=== PATIENT | male | born 1950 | race Hispanic/Latino ===

== ENCOUNTER 2017-09-22 10:29 | Emergency (ER) | payer OTHER ==
[2017-09-22] MEDS ORDERED: Sodium Chloride 0.9% 1,000 ML IV ONE (11:11)
[2017-09-22] MEDS ORDERED: Albuterol-Ipratrop 3 mg / 0.5 (3 ml) UD INH STA (11:12)
--- NOTE | 2017-09-22 11:27 | C.PDOC ---
History Of Present Illness 67 y/o male presents to ED for evaluation of flu like symptoms for the past week. Pt complains of congestion, cough with yellow phlegm. Pt states he has history of vertigo, and states coughing makes him feel dizzy. Notes taking vertigo medications with mild relief, but states that cough is persistent which makes him feel worse. Denies fever, chills, or headache. Time Seen by Provider: 09/22/17 10:48 Chief Complaint (Nursing): Flu-like Symptoms History Per: Patient History/Exam Limitations: no limitations Onset/Duration Of Symptoms: Days Current Symptoms Are (Timing): Still Present Location Of Pain: None Sick Contacts (Context): None Associated Symptoms: Cough, Sputum, Nasal Congestion. denies: Sore Throat, Neck Pain, Sinus Drainage, Myalgias Ear Symptoms: Bilateral: None Recent travel outside of the [place]: No Additional History Per: Patient Past Medical History Reviewed: Historical Data, Nursing Documentation, Vital Signs Vital Signs: Last Vital Signs Temp 98.2 F 09/22/17 13:00 Pulse 90 09/22/17 13:00 Resp 16 09/22/17 13:00 BP 134/81 09/22/17 13:00 Pulse Ox 99 09/22/17 13:22 - Medical History PMH: Back Problems, Chronic Pain Family History: States: Unknown Family Hx - Social History Hx Tobacco Use: No Hx Alcohol Use: No Hx Substance Use: No - Immunization History Hx Tetanus Toxoid Vaccination: No Hx Influenza Vaccination: No Hx Pneumococcal Vaccination: No Review Of Systems Except As Marked, All Systems Reviewed And Found Negative. Constitutional: Negative for: Fever, Chills ENT: Positive for: Nose Congestion Cardiovascular: Negative for: Chest Pain, Palpitations Respiratory: Positive for: Cough, Sputum. Negative for: Shortness of Breath, Hemoptysis Gastrointestinal: Negative for: Nausea, Vomiting, Abdominal Pain, Diarrhea Neurological: Positive for: Dizziness. Negative for: Weakness, Numbness, Headache Physical Exam - Physical Exam Appears: Non-toxic, No Acute Distress Skin: Normal Color, Warm, Dry Head: Atraumatic, Normacephalic Eye(s): bilateral: Normal Inspection Oral Mucosa: Moist Neck: Supple Chest: Symmetrical Cardiovascular: Rhythm Regular, No Murmur Respiratory: Other (coarse breath sounds) Gastrointestinal/Abdominal: Soft, No Tenderness Extremity: Normal ROM, No Pedal Edema Neurological/Psych: Oriented x3, Normal Speech ED Course And Treatment - Laboratory Results Result Diagrams: 09/22/17 12:02 09/22/17 12:02 ECG: Interpreted By Me, Viewed By Me ECG Rhythm: Sinus Rhythm ECG Interpretation: No Acute Changes Interpretation Of ECG: Normal axis, normal intervals. No acute ST/T wave changes. Rate From EC (bpm) O2 Sat by Pulse Oximetry: 99 (RA) Pulse Ox Interpretation: Normal Medical Decision Making Medical Decision Making: Impression: 1. Bronchitis 2. Vertigo Blood work, head CT, EKG, CXR, Influenza AB ordered and reviewed. Pt was given IV fluids and Albuterol treatment. On re-eval, pt feels better, will be discharged home, instructed to follow up with PMD in 1-2 days. Disposition Discussed With : Rachael Galindo - Disposition Referrals: Ursula Galindo MD [Medical Doctor] - Disposition: HOME/ ROUTINE Disposition Time: 13:20 Condition: IMPROVED Additional Instructions: follow up with your doctor in 2 days call to make an appointment take medications as prescribed return to hospital if symptoms worsens or progress Prescriptions: Albuterol HFA [Ventolin HFA 90 mcg/actuation (8 g)] 2 puff IH [id number] #1 puff Azithromycin [Zithromax] 250 mg PO DAILY #4 tab Hydrocodone/Chlorpheniramine [Tussionex] 5 ml PO QPM #80 ml predniSONE [predniSONE Tab] 50 mg PO DAILY #4 tab Forms: [facility] (Armenian), General Discharge Instructions - Clinical Impression Clinical Impression: Dizziness, Bronchitis - Scribe Statement The provider has reviewed the documentation as recorded by the Gertchen Bianchi All medical record entries made by the Nagaibluis fernando were at my direction and personally dictated by me. I have reviewed the chart and agree that the record accurately reflects my personal performance of the history, physical exam, medical decision making, and the department course for this patient. I have also personally directed, reviewed, and agree with the discharge instructions and disposition.
[2017-09-22 12:06] LABS: BASO # 0.1 K/uL (0.0-0.2); BASO % 0.6 % (0.0-2.0); EOS # 0.2 K/uL (0.0-0.7); EOS % 2.2 % (0.0-4.0); HEMATOCRIT 46.4 % (35.0-51.0); LYMPH # 1.4 K/uL (1.0-4.3); LYMPH % 15.8 % (20.0-40.0); MEAN CELL VOLUME 85.3 fL (80.0-94.0); MEAN CORPUSCULAR HEMOGLOBIN 28.8 pg (27.0-31.0); MEAN CORPUSCULAR HGB CONC 33.8 g/dL (33.0-37.0); MEAN PLATELET VOLUME 9.4 fL (7.2-11.7); MONO # 0.7 K/uL (0.0-0.8); MONO % 7.5 % (0.0-10.0); NRBC % 0.7 % (0.0-2.0); RED CELL DISTRIBUTION WIDTH 13.5 % (11.5-14.5); WHITE BLOOD COUNT 8.8 K/uL (4.8-10.8)
--- NOTE | 2017-09-22 12:09 | CT ---
PROCEDURE: CT HEAD WITHOUT CONTRAST. HISTORY: dizziness COMPARISON: Head CT without contrast 12/02/2014. TECHNIQUE: Axial computed tomography images were obtained through the head/brain without intravenous contrast. Radiation dose: Total exam DLP = 834.90 mGy-cm. This CT exam was performed using one or more of the following dose reduction techniques: Automated exposure control, adjustment of the mA and/or kV according to patient size, and/or use of iterative reconstruction technique. FINDINGS: HEMORRHAGE: No intracranial hemorrhage. BRAIN: Diffuse expansion of the ventriculosulcal and cisternal spaces is appreciated compatible with diffuse cerebral atrophy. No definite edema pattern is appreciate or mass-effect. The cortex is unremarkable throughout. There is no suspicious extra-axial collection appreciated and the midline brain anatomy remains unremarkable diffusely. VENTRICLES: Unremarkable. No hydrocephalus. CALVARIUM: Unremarkable. PARANASAL SINUSES: Mild left anterior and middle ethmoid sinusitis identified. Minimal right maxillary sinusitis also noted. MASTOID AIR CELLS: Unremarkable as visualized. No inflammatory changes. OTHER FINDINGS: None. IMPRESSION: Stable diffuse cerebral atrophy is reiterated with no definite acute intracranial findings by standard CT criteria. Follow-up CT or MRI is advised if clinically warranted. Trace right maxillary sinusitis noted incidentally. Limited left ethmoid sinusitis again identified in the interval.
[2017-09-22] MEDS ORDERED: Albuterol-Ipratrop 3 mg / 0.5 (3 ml) UD ONE (12:15)
[2017-09-22 12:23] LABS: CHLORIDE 100 mmol/L (98-107); POTASSIUM 4.1 mmol/L (3.6-5.2); SODIUM 135 mmol/L (132-148)
[2017-09-22 12:25] LABS: BILIRUBIN,TOTAL 0.9 mg/dL (0.2-1.3); GFR AFRICAN-AMERICAN > 60
[2017-09-22 12:26] LABS: ALB/GLOB RATIO 1.3 (1.0-2.1); ALKALINE PHOSPHATASE 74 U/L (38-126); ALT/SGPT 85 U/L (21-72); AST/SGOT 58 U/L (17-59); BLOOD UREA NITROGEN 17 mg/dL (9-20); CARBON DIOXIDE 24 mmol/L (22-30); GLUCOSE,RANDOM 98 mg/dL (75-110); TOTAL PROTEIN 7.8 g/dL (6.3-8.3)
[2017-09-22 12:27] LABS: CALCIUM 9.3 mg/dl (8.6-10.4)
--- NOTE | 2017-09-22 12:43 | RAD ---
HISTORY: SOB COMPARISON: No prior. TECHNIQUE: Chest PA and lateral FINDINGS: LUNGS: Limited linear atelectasis or fibrosis in the inferior right lung zone with mild elevation right hemidiaphragm evident. No acute infiltrate bilaterally. PLEURA: No significant pleural effusion identified. No pneumothorax apparent. CARDIOVASCULAR: Normal. OSSEOUS STRUCTURES: No significant abnormalities. VISUALIZED UPPER ABDOMEN: Normal. OTHER FINDINGS: None. IMPRESSION: Limited linear atelectasis or fibrosis right base. No acute infiltrate bilaterally. No cardiomegaly.
[2017-09-22 13:01] VITALS: BP 134/81; PULSE 90; RESP 16; TEMP 98.2
[2017-09-22 13:22] VITALS: O2SAT 99
--- NOTE | 2017-09-27 11:12 | CARD ---
APPROVED REPORT EKG Measurement Heart [id number] <Conclusion> Normal sinus rhythm Normal ECG
== END 2017-09-22 13:25 | disposition home or self-care (01) ==
LOC: C.ER 10:29
DX: J40 Bronchitis, not specified as acute or chronic (principal); R42 Dizziness and giddiness
CPT/HCPCS: 70450; 71020; 80053; 83880; 84484; 85025; 87804; 94150; 94640; 96360; 99283; J7040

== ENCOUNTER 2017-11-12 12:44 | Inpatient (IN) | payer OTHER ==
[2017-11-12] MEDS ORDERED: Sodium Chloride 0.9% 1,000 ML IV STA (13:18)
[2017-11-12] MEDS ORDERED: Sodium Chloride 0.9% 1,000 ML ONE (14:03)
--- NOTE | 2017-11-12 14:07 | C.PDOC ---
History Of Present Illness 67 y/o male hx 4 years of occasional dizziness presents to the ED c/o persistent vertigo for three days. The patient has been taking Meclizine one tablet x3 a day. The patient took the medication this morning at 11am and he is concerned because of the expiration date that is found on the bottle. The patient denies nausea, vomiting, diarrhea, SOB, and visual change. Time Seen by Provider: 11/12/17 13:14 Chief Complaint (Nursing): Dizziness/Lightheaded History Per: Patient History/Exam Limitations: no limitations Onset/Duration Of Symptoms: Days Current Symptoms Are (Timing): Still Present Possible Causative Factor(s): Vertigo Additional History Per: Patient Past Medical History Reviewed: Historical Data, Nursing Documentation, Vital Signs Vital Signs: Last Vital Signs Temp 97.5 F L 11/12/17 13:00 Pulse 65 11/12/17 13:00 Resp 20 11/12/17 13:00 BP 160/85 H 11/12/17 13:00 Pulse Ox 100 11/12/17 15:29 - Medical History PMH: Back Problems, Chronic Pain Surgical History: No Surg Hx Family History: States: No Known Family Hx - Social History Hx Tobacco Use: No Hx Alcohol Use: No Hx Substance Use: No - Immunization History Hx Tetanus Toxoid Vaccination: No Hx Influenza Vaccination: No Hx Pneumococcal Vaccination: No Review Of Systems Except As Marked, All Systems Reviewed And Found Negative. Constitutional: Negative for: Fever, Chills Respiratory: Negative for: Cough, Shortness of Breath Gastrointestinal: Negative for: Nausea, Vomiting Physical Exam - Physical Exam Appears: Non-toxic, No Acute Distress Skin: Warm, Dry Head: Atraumatic, Normacephalic Eye(s): bilateral: Normal Inspection Oral Mucosa: Moist Neck: Supple Cardiovascular: Rhythm Regular Respiratory: Normal Breath Sounds, No Rales, No Rhonchi Gastrointestinal/Abdominal: Soft, No Tenderness, No Guarding, No Rebound Back: Normal Inspection Extremity: Capillary Refill (2<sec.) Neurological/Psych: Oriented x3, Normal Speech, Normal Cognition, Other ( neurological exam normal and no positional vertigo ) Gait: Steady ED Course And Treatment - Laboratory Results Result Diagrams: 11/12/17 14:02 11/12/17 15:04 Lab Interpretation: Abnormal (mild leukocytosis) O2 Sat by Pulse Oximetry: 100 (RA) Pulse Ox Interpretation: Normal - Radiology CXR: Interpreted by Me CXR Interpretation: Yes: No Acute Disease Progress Note: meclizine 50 mg PO, Reglan 20 mg IV. IVF's Reevaluation Time: 16:02 Reassessment Condition: Unchanged (not sig improved) - Physician Consult Information Outcome Of Conversation: 1600: d/w Dr. Juan Bianchi, [employer]- ok to admit. Medical Decision Making Medical Decision Making: PROCEDURE: CT HEAD WITHOUT CONTRAST. HISTORY: vertigo, ? NPH vs chronic Head CT: IMPRESSION: Subcentimeter focal low attenuation in the inferior aspect of the left basal ganglia noted image 14 series 2 not clearly seen in the previous study. If clinically warranted further assessment by MRI is suggested. Otherwise no significant interval change in the brain and ventricles size since the previous study. refractory vertigo, worse when flex/extension of neck and not L/R rotation of head. unimproved with ED tx pt falling @ home and feels unsafe until vertigo improved head CT unremarkable. Disposition Doctor Will See Patient In The: Hospital Counseled Patient/Family Regarding: Studies Performed, Diagnosis - Disposition Disposition: HOSPITALIZED Disposition Time: 16:04 Condition: FAIR Forms: [facility] (Jamaican) - Clinical Impression Clinical Impression: Vertigo - Scribe Statement The provider has reviewed the documentation as recorded by the Scribe Dari Matthews
[2017-11-12 14:08] LABS: BASO # 0.1 K/uL (0.0-0.2); BASO % 0.7 % (0.0-2.0); EOS # 0.1 K/uL (0.0-0.7); EOS % 0.8 % (0.0-4.0); HEMOGLOBIN 16.8 g/dL (12.0-18.0); LYMPH # 1.4 K/uL (1.0-4.3); LYMPH % 11.2 % (20.0-40.0); MEAN CELL VOLUME 84.9 fL (80.0-94.0); MEAN CORPUSCULAR HEMOGLOBIN 29.5 pg (27.0-31.0); MEAN CORPUSCULAR HGB CONC 34.8 g/dL (33.0-37.0); MEAN PLATELET VOLUME 9.8 fL (7.2-11.7); MONO # 0.7 K/uL (0.0-0.8); MONO % 5.9 % (0.0-10.0); NEUT # 9.9 K/uL (1.8-7.0); NEUT % 81.4 % (50.0-75.0); RBC 5.7 Mil/uL (4.40-5.90); RED CELL DISTRIBUTION WIDTH 14.4 % (11.5-14.5); WHITE BLOOD COUNT 12.2 K/uL (4.8-10.8)
--- NOTE | 2017-11-12 14:36 | CT ---
PROCEDURE: CT HEAD WITHOUT CONTRAST. HISTORY: vertigo, ? NPH vs chronic COMPARISON: Comparison is made with the previous study dated 09/22/2017 TECHNIQUE: Axial computed tomography images were obtained through the head/brain without intravenous contrast. Radiation dose: Total exam DLP = 924.42 mGy-cm. This CT exam was performed using one or more of the following dose reduction techniques: Automated exposure control, adjustment of the mA and/or kV according to patient size, and/or use of iterative reconstruction technique. FINDINGS: HEMORRHAGE: No intracranial hemorrhage. BRAIN: There is a focal low attenuation noted at the inferior aspect of the left basal ganglia image 14 series 2 not clearly seen in the previous exam. [id number] diffuse volume loss is again noted. VENTRICLES: Unremarkable. No hydrocephalus. CALVARIUM: Unremarkable. PARANASAL SINUSES: Unremarkable as visualized. No significant inflammatory changes. MASTOID AIR CELLS: Unremarkable as visualized. No inflammatory changes. OTHER FINDINGS: None. IMPRESSION: Subcentimeter focal low attenuation in the inferior aspect of the left basal ganglia noted image 14 series 2 not clearly seen in the previous study. If clinically warranted further assessment by MRI is suggested. Otherwise no significant interval change in the brain and ventricles size since the previous study P
[2017-11-12 15:25] LABS: ALBUMIN 4.3 g/dL (3.5-5.0); ALT/SGPT 44 U/L (21-72); AST/SGOT 36 U/L (17-59); BLOOD UREA NITROGEN 18 mg/dL (9-20); CALCIUM 9.7 mg/dl (8.6-10.4); GFR AFRICAN-AMERICAN > 60; GFR NON-AFRICAN AMERICAN > 60; HDL CHOLESTEROL 44 mg/dL (30-70)
[2017-11-12 15:36] LABS: LDL CHOLESTEROL 165 mg/dL (0-129)
[2017-11-12 16:26] LABS: URINE BILIRUBIN NEGATIVE (NEGATIVE); URINE BLOOD NEGATIVE (NEGATIVE); URINE CLARITY Clear (Clear); URINE COLOR Yellow (YELLOW); URINE GLUCOSE (UA) NORMAL (Normal); URINE LEUKOCYTE ESTERASE NEG Leu/uL (Negative); URINE NITRATE NEGATIVE (NEGATIVE); URINE PROTEIN NEGATIVE (NEGATIVE); URINE UROBILINOGEN NORMAL mg/dL (0.2-1.0)
[2017-11-12 16:42] LABS: BARBITURATES, UR NEGATIVE (NEGATIVE); BENZODIAZEPINES, UR NEGATIVE (NEGATIVE); OPIATES, UR NEGATIVE (NEGATIVE); PHENCYCLIDINE, UR NEGATIVE (NEGATIVE)
--- NOTE | 2017-11-12 17:01 | RAD ---
HISTORY: adm COMPARISON: Comparison is made to 09/22/2017 FINDINGS: LUNGS: No active pulmonary disease. PLEURA: No significant pleural effusion identified, no pneumothorax apparent. CARDIOVASCULAR: Normal. OSSEOUS STRUCTURES: No significant abnormalities. VISUALIZED UPPER ABDOMEN: Normal. OTHER FINDINGS: None. IMPRESSION: No active disease.
[2017-11-12 18:13] VITALS: RESP 20
--- NOTE | 2017-11-12 18:27 | CP.PCM.HP ---
Past Patient History - Past Social History Smoking Status: Never Smoked - NEUROLOGICAL Hx Neurological Disorder: Yes Hx Vertigo: Yes - MUSCULOSKELETAL/RHEUMATOLOGICAL Hx Musculoskeletal Disorders: Yes - GASTROINTESTINAL Hx Gastrointestinal Disorders: Yes Hx Gastroesophageal Reflux: Yes - PSYCHIATRIC Hx Substance Use: No - SURGICAL HISTORY Hx Surgeries: No Meds Allergies/Adverse Reactions: Allergies Allergy/AdvReac Type Severity Reaction Status Date / Time No Known Allergies Allergy Verified 09/22/17 10:34 Results - Vital Signs Recent Vital Signs: Last Vital Signs Temp 98.3 F 11/12/17 18:12 Pulse 68 11/12/17 18:12 Resp 20 11/12/17 18:12 BP 138/86 11/12/17 18:12 Pulse Ox 96 11/12/17 18:12 - Labs Result Diagrams: 11/12/17 14:02 11/12/17 15:04 Labs: Laboratory Results - last 24 hr 11/12/17 11/12/17 11/12/17 14:02 15:04 16:21 WBC 12.2 H RBC 5.70 Hgb 16.8 Hct 48.4 MCV 84.9 MCH 29.5 MCHC 34.8 RDW 14.4 Plt Count 147 MPV 9.8 Neut % (Auto) 81.4 H Lymph % (Auto) 11.2 L [place] % (Auto) 5.9 Eos % (Auto) 0.8 Baso % (Auto) 0.7 Neut # 9.9 H Lymph # 1.4 [place] # 0.7 Eos # 0.1 Baso # 0.1 Sodium 136 Potassium 4.0 Chloride 100 Carbon Dioxide 29 Anion Gap 11 BUN 18 Creatinine 0.8 Est GFR ( Amer) > 60 Est GFR (Non-Af Amer) > 60 Random Glucose 99 Calcium 9.7 Total Bilirubin 1.0 AST 36 ALT 44 Alkaline Phosphatase 57 Troponin I < 0.0120 Total Protein 8.7 H Albumin 4.3 Globulin 4.3 H Albumin/Globulin Ratio 1.0 Triglycerides 174 H D Cholesterol 222 H LDL Cholesterol Direct 165 H HDL Cholesterol 44 Urine Color Yellow Urine Clarity Clear Urine pH 6.0 Ur Specific [place] 1.015 Urine Protein Negative Urine Glucose (UA) Normal Urine Ketones Trace Urine Blood Negative Urine Nitrate Negative Urine Bilirubin Negative Urine Urobilinogen Normal Ur Leukocyte Esterase Neg Urine WBC (Auto) 1 Urine RBC (Auto) 1 Urine Opiates Screen Urine Methadone Screen Ur Barbiturates Screen Ur Phencyclidine Scrn Ur Amphetamines Screen U Benzodiazepines Scrn U Oth Cocaine Metabols U Cannabinoids Screen Alcohol, Quantitative < 10 11/12/17 16:21 WBC RBC Hgb Hct MCV MCH MCHC RDW Plt Count MPV Neut % (Auto) Lymph % (Auto) [place] % (Auto) Eos % (Auto) Baso % (Auto) Neut # Lymph # [place] # Eos # Baso # Sodium Potassium Chloride Carbon Dioxide Anion Gap BUN Creatinine Est GFR ( Amer) Est GFR (Non-Af Amer) Random Glucose Calcium Total Bilirubin AST ALT Alkaline Phosphatase Troponin I Total Protein Albumin Globulin Albumin/Globulin Ratio Triglycerides Cholesterol LDL Cholesterol Direct HDL Cholesterol Urine Color Urine Clarity Urine pH Ur Specific [place] Urine Protein Urine Glucose (UA) Urine Ketones Urine Blood Urine Nitrate Urine Bilirubin Urine Urobilinogen Ur Leukocyte Esterase Urine WBC (Auto) Urine RBC (Auto) Urine Opiates Screen Negative Urine Methadone Screen Negative Ur Barbiturates Screen Negative Ur Phencyclidine Scrn Negative Ur Amphetamines Screen Negative U Benzodiazepines Scrn Negative U Oth Cocaine Metabols Negative U Cannabinoids Screen Negative Alcohol, Quantitative
[2017-11-13] MEDS: Enoxaparin 40 mg Syringe SC SCH (11:06)
[2017-11-13] MEDS: Pantoprazole 40 mg EC Tab PO SCH (11:07)
[2017-11-13] MEDS: Multiple Vitamins Tab PO SCH (14:10)
--- NOTE | 2017-11-13 15:54 | CT ---
PROCEDURE: CT HEAD WITHOUT CONTRAST. HISTORY: Repeat. CT Head for comparison .Dx. Vertigo COMPARISON: Comparison is made with previous study dated 11/12/2017 TECHNIQUE: Axial computed tomography images were obtained through the head/brain without intravenous contrast. Radiation dose: Total exam DLP = 815.71 mGy-cm. This CT exam was performed using one or more of the following dose reduction techniques: Automated exposure control, adjustment of the mA and/or kV according to patient size, and/or use of iterative reconstruction technique. FINDINGS: HEMORRHAGE: No intracranial hemorrhage. BRAIN: Previously described focal low attenuation at the inferior aspect of the left basal ganglia is not clearly seen in the current exam. [id number]-[id number] atrophy and moderate chronic microvascular white matter ischemic changes are again noted. VENTRICLES: Unremarkable. No hydrocephalus. CALVARIUM: Unremarkable. PARANASAL SINUSES: Unremarkable as visualized. No significant inflammatory changes. MASTOID AIR CELLS: Unremarkable as visualized. No inflammatory changes. OTHER FINDINGS: None. IMPRESSION: No evidence of acute intracranial hemorrhage. Previously described small focal low attenuation at the inferior aspect of the left basal ganglia in the previous study is not seen in the current exam. Otherwise no significant interval change.
--- NOTE | 2017-11-13 16:43 | CON ---
DATE: NEUROLOGY CONSULTATION ATTENDING PHYSICIAN: Diamond Bianchi MD. REASON FOR CONSULTATION: Vertigo. HISTORY OF PRESENT ILLNESS: The patient is a 67-year-old gentleman with past medical history of ethanol overuse, quit several years ago as per the patient and history of dizziness 3 years ago. The patient was admitted because of severe episode of vertigo described as spinning of the head and surrounding and illusion of movement when he woke up from sleep in the morning. The patient states that everything surrounding was moving and having tendency to fall and aggravated by turning the head to the right or to the left. The patient denies associated double vision, blurred vision, dysarthria, dysphagia, numbness, tingling, weakness of upper or lower extremities. The patient states that he had similar episode 3 years ago and was given meclizine and then which recurred a year ago and he had meclizine at home, he used it and states that it did not work drastically, but the patient states that today his vertigo is better than the day of admission. The patient denies any associated headache or head trauma in the past. PAST MEDICAL HISTORY: As mentioned above. SOCIAL HISTORY: Denies smoking or ethanol or drug abuse. ALLERGY: NO KNOWN ALLERGIC REACTION TO MEDICATION. MEDICATIONS: Meclizine at home. REVIEW OF SYSTEMS: As per H and P and ER notes reviewed. PHYSICAL EXAMINATION: VITAL SIGNS: Blood pressure 160/85, pulse 65, respirations 20, temperature afebrile. Repeat vital signs: 150/70, pulse 87, respiration 20, temperature afebrile. NEUROLOGIC: Mental state: The patient is alert, awake, oriented x3. Normal naming, repetition and comprehension. No agnosia. No apraxia. Cranial nerves: Pupils 3 mm bilaterally reactive to light and accommodation. Extraocular movement intact. V1 to V3 intact. No facial asymmetry. No field defect. Positive end gaze nystagmus on both sides. Motor: Normal tone in upper and lower extremities. No pronation drip. No tremors, action, rest and postural. Upper extremities deltoid, elbow cot assembler 5/5. Lower extremities, hip flexion, knee flexion, extension and ankle 5/5. Deep tendon reflexes 1 to 2 in the upper and lower extremities. Plantar flexion both sides. Sensory: Pinprick, light touch symmetrical. Coordination: [id number] intact. LABORATORY DATA: CAT scan of the brain consistent with focal low attenuation in the inferior aspect of the left basal ganglia, image 14, the series, which was not seen on the previous CAT scan done on 09/22/2017. IMPRESSION: The patient's findings are most likely secondary to benign paroxysmal positional vertigo, but because of the new findings on the CAT scan, MRI of the brain indicated before discharge or CAT scan repeat of the brain can be repeated if the MRI cannot be done and carotid Doppler as well and start the patient on aspirin 81 mg. I have applied Matilda maneuver on the patient. The Matilda maneuver was slightly positive and then I applied canalith repositioning. patient should be discharged on ativa 0.5 mg plus meclizine HS and prn in AM Thank you for the consultation. Vikash Adam MD DAVID
--- NOTE | 2017-11-13 18:34 | CP.PCM.PN ---
Subjective - Date & Time of Evaluation Date of Evaluation: 11/13/17 Time of Evaluation: 09:50 Objective - Vital Signs/Intake and Output Vital Signs (last 24 hours): Temp Pulse Resp BP Pulse Ox 97.8 F 71 20 122/76 97 11/13/17 15:00 11/13/17 15:00 11/13/17 15:00 11/13/17 15:00 11/13/17 15:00 Intake and Output: 11/13/17 11/13/17 06:59 18:59 Intake Total 240 Balance 240 - Medications Medications: Current Medications Amlodipine Besylate (Norvasc) 10 mg PO DAILY [facility] Last Admin: 11/13/17 11:47 Dose: 10 mg Aspirin (Aspirin Chewable) 81 mg PO DAILY [facility] Last Admin: 11/13/17 15:15 Dose: 81 mg Enoxaparin Sodium (Lovenox) 40 mg SC DAILY [facility] Last Admin: 11/13/17 11:06 Dose: 40 mg Lorazepam (Ativan) 0.5 mg PO HS [facility] Meclizine HCl (Antivert) 25 mg PO Q6 PRN PRN Reason: Dizziness Last Admin: 11/13/17 18:22 Dose: 25 mg Multivitamins (Hexavitamin) 1 tab PO DAILY [facility] Last Admin: 11/13/17 14:10 Dose: 1 tab Pantoprazole Sodium (Protonix Ec Tab) 40 mg PO DAILY [facility] Last Admin: 11/13/17 11:07 Dose: 40 mg Pneumococcal Polyvalent Vaccine (Pneumovax 23 Vaccine) 0.5 ml IM .ONCE ONE Stop: 11/14/17 10:01 - Labs Labs: 11/12/17 14:02 11/12/17 15:04
[2017-11-14] MEDS: Pantoprazole 40 mg EC Tab PO SCH (09:53)
[2017-11-14] MEDS: Multiple Vitamins Tab PO SCH (09:53)
[2017-11-14] MEDS: Enoxaparin 40 mg Syringe SC SCH (10:00)
[2017-11-14] MEDS ORDERED: Pneumococcal 23-Valent Vaccine IM ONE (10:00)
[2017-11-14] MEDS ORDERED: Influenza Vaccine 60 mcg/0.5 mL SYR (4YR UP) IM ONE (10:00)
--- NOTE | 2017-11-14 15:24 | CP.PCM.PN ---
Subjective - Date & Time of Evaluation Date of Evaluation: 11/14/17 Time of Evaluation: 11:45 - Subjective Subjective: clinically same Objective - Vital Signs/Intake and Output Vital Signs (last 24 hours): Temp Pulse Resp BP Pulse Ox 98.4 F 71 20 135/77 98 11/14/17 08:00 11/14/17 08:00 11/14/17 08:00 11/14/17 08:00 11/14/17 08:00 Intake and Output: 11/14/17 11/14/17 06:59 18:59 Intake Total 300 200 Balance 300 200 - Medications Medications: Current Medications Amlodipine Besylate (Norvasc) 10 mg PO DAILY [facility] Last Admin: 11/14/17 09:58 Dose: 10 mg Aspirin (Aspirin Chewable) 81 mg PO DAILY [facility] Last Admin: 11/14/17 09:53 Dose: 81 mg Enoxaparin Sodium (Lovenox) 40 mg SC DAILY [facility] Last Admin: 11/14/17 10:00 Dose: 40 mg Lorazepam (Ativan) 0.5 mg PO HS [facility] Last Admin: 11/13/17 21:27 Dose: 0.5 mg Meclizine HCl (Antivert) 25 mg PO Q6 PRN PRN Reason: Dizziness Last Admin: 11/14/17 09:58 Dose: 25 mg Multivitamins (Hexavitamin) 1 tab PO DAILY [facility] Last Admin: 11/14/17 09:53 Dose: 1 tab Pantoprazole Sodium (Protonix Ec Tab) 40 mg PO DAILY [facility] Last Admin: 11/14/17 09:53 Dose: 40 mg - Labs Labs: 11/12/17 14:02 11/12/17 15:04 - Constitutional Appears: Well - Head Exam Head Exam: ATRAUMATIC, NORMAL INSPECTION, NORMOCEPHALIC - Eye Exam Eye Exam: EOMI, Normal appearance, PERRL Pupil Exam: NORMAL ACCOMODATION, PERRL - ENT Exam ENT Exam: Mucous Membranes Moist, Normal Exam - Neck Exam Neck Exam: Full ROM, Normal Inspection. absent: Lymphadenopathy - Respiratory Exam Respiratory Exam: Decreased Breath Sounds - Cardiovascular Exam Cardiovascular Exam: REGULAR RHYTHM, +S1, +S2 - GI/Abdominal Exam GI & Abdominal Exam: Soft, Diminished Bowel Sounds - Rectal Exam Rectal Exam: Deferred Assessment and Plan - Assessment and Plan (Free Text) Plan: Patient wants to go home patient had similar episode in the past Patient will come back for the follow-up as patient has multiple cats and patient wants to go does not want to stay patient wants to feed the cats patient feels better with the antibiotic patient had a similar issues in the past and felt better with the antivert patient assures us to come for the follow-up
[2017-11-15] MEDS ORDERED: Pneumococcal 23-Valent Vaccine IM ONE (10:00)
--- NOTE | 2017-11-15 10:43 | CP.PCM.PN ---
Subjective - Date & Time of Evaluation Date of Evaluation: 11/15/17 Time of Evaluation: 08:20 - Subjective Subjective: clinically same Objective - Vital Signs/Intake and Output Vital Signs (last 24 hours): Temp Pulse Resp BP Pulse Ox 98.4 F 106 H 20 138/87 97 11/15/17 08:10 11/15/17 08:10 11/15/17 08:10 11/15/17 08:10 11/15/17 08:10 Intake and Output: 11/15/17 11/15/17 06:59 18:59 Intake Total 300 Balance 300 - Medications Medications: Current Medications Amlodipine Besylate (Norvasc) 10 mg PO DAILY [facility] Last Admin: 11/14/17 09:58 Dose: 10 mg Aspirin (Aspirin Chewable) 81 mg PO DAILY [facility] Last Admin: 11/14/17 09:53 Dose: 81 mg Enoxaparin Sodium (Lovenox) 40 mg SC DAILY [facility] Last Admin: 11/14/17 10:00 Dose: 40 mg Lorazepam (Ativan) 0.5 mg PO HS [facility] Last Admin: 11/14/17 21:17 Dose: 0.5 mg Meclizine HCl (Antivert) 25 mg PO Q6 PRN PRN Reason: Dizziness Last Admin: 11/15/17 03:35 Dose: 25 mg Multivitamins (Hexavitamin) 1 tab PO DAILY [facility] Last Admin: 11/14/17 09:53 Dose: 1 tab Pantoprazole Sodium (Protonix Ec Tab) 40 mg PO DAILY [facility] Last Admin: 11/14/17 09:53 Dose: 40 mg - Labs Labs: 11/12/17 14:02 11/12/17 15:04 - Constitutional Appears: Well - Head Exam Head Exam: ATRAUMATIC, NORMAL INSPECTION, NORMOCEPHALIC - Eye Exam Eye Exam: EOMI, Normal appearance, PERRL Pupil Exam: NORMAL ACCOMODATION, PERRL - ENT Exam ENT Exam: Mucous Membranes Moist, Normal Exam - Neck Exam Neck Exam: Full ROM, Normal Inspection. absent: Lymphadenopathy - Respiratory Exam Respiratory Exam: Decreased Breath Sounds - Cardiovascular Exam Cardiovascular Exam: REGULAR RHYTHM, +S1, +S2 - GI/Abdominal Exam GI & Abdominal Exam: Soft, Diminished Bowel Sounds - Rectal Exam Rectal Exam: Deferred
[2017-11-15] MEDS: Enoxaparin 40 mg Syringe SC SCH (10:49)
[2017-11-15] MEDS: Pantoprazole 40 mg EC Tab PO SCH (10:49)
[2017-11-15] MEDS: Multiple Vitamins Tab PO SCH (10:49)
--- NOTE | 2017-11-15 11:46 | VASCLAB ---
PROCEDURE: HISTORY: Vertigo COMPARISON: None available. TECHNIQUE: Grayscale and duplex Doppler evaluation of the cervical carotid and vertebral arteries were performed. The common carotid, carotid bifurcations and cervical Internal Carotid Artery (ICA) and proximal External Carotid Artery (ECA) were evaluated. The vertebral arteries were evaluated for gross patency and flow direction. Report prepared by DARIN Zhu FINDINGS: RIGHT CAROTID ARTERIES: 1. Common Carotid Artery: No significant focal plaque formation of the right common carotid artery. Maximum Peak Systolic velocity: 89 cm/sec: End-diastolic velocity 19 cm/sec. 2. Carotid Bifurcation: Calcific plaque formation. Maximum Peak Systolic velocity: 82 cm/sec: End-diastolic velocity 17 cm/sec. 3. Internal Carotid Artery: Severe plaque formation of the right proximal ICA which results in a hemodynamically significant stenosis. Plaque description: Calcific 3.1. Proximal Segment: Peak systolic velocity 197 cm/sec: End-diastolic velocity 60 cm/sec - % stenosis 60-70% 3.2. Middle Segment: Peak systolic velocity 69 cm/sec: End-diastolic velocity 16 cm/sec - % stenosis 3.3. Distal Segment: Peak systolic velocity 43 cm/sec: End-diastolic velocity 19 cm/sec - % stenosis 4. External Carotid Artery: No significant focal plaque formation. Peak systolic velocity 108 cm/sec 5. ICA/CCA Ratio: 1.3 LEFT CAROTID ARTERIES: 1. Common Carotid Artery: Heterogeneous plaque formation of the left common carotid artery. Maximum Peak Systolic velocity: 82cm/sec: End-diastolic velocity 15 cm/sec. 2. Carotid Bifurcation: Minimal calcific plaque formation. Maximum Peak Systolic velocity: 80 cm/sec: End-diastolic velocity 18 cm/sec. 3. Internal Carotid Artery: Minimal plaque formation of the left proximal ICA which does not result in hemodynamically significant stenosis. Plaque description: Minimal calcific 3.1. Proximal Segment: Peak systolic velocity 95 cm/sec: End-diastolic velocity 24 cm/sec - % stenosis 0-15% 3.2. Middle Segment: Peak systolic velocity 74 cm/sec: End-diastolic velocity 27 cm/sec - % stenosis 0-15% 3.3. Distal Segment: Peak systolic velocity 73 cm/sec: End-diastolic velocity 27 cm/sec - % stenosis 0-15% 4. External Carotid Artery: No significant focal plaque formation. Peak systolic velocity 72 cm/sec 5. ICA/CCA Ratio: 1.1 VERTEBRAL ARTERIES: 1. Right Vertebral Artery: The right vertebral artery flow direction is antegrade. 2. Left Vertebral Artery: The left vertebral artery flow direction is antegrade. OTHER FINDINGS: 1. Right Brachial Blood pressure: 140 mmHg. 2. Left Brachial Blood pressure: 160 mmHg. IMPRESSION: RIGHT: Increased velocity at the proximal internal carotid artery, suggesting 60-70% stenosis. LEFT: Duplex scan does not suggest hemodynamically significant stenosis of the left extracranial carotid arteries. The above findings were reported to Graciela Bowles, at 10:42 a.m.
--- NOTE | 2017-11-15 12:34 | MRI ---
PROCEDURE: MRI BRAIN WITHOUT CONTRAST HISTORY: Vertigo COMPARISON: CT head 11/13/2017 TECHNIQUE: Multiplanar, multisequence MR images of the brain were obtained without intravenous contrast enhancement. FINDINGS: HEMORRHAGE: None DWI: No evidence of an acute or early subacute infarction. BRAIN PARENCHYMA: No mass effect or edema. There is widening of the cerebral sulci bilaterally with mild compensatory ventricular enlargement. This is consistent with cerebral atrophy. Within the periventricular and subcortical white matter, there are bilateral scattered small foci of abnormal T2/FLAIR signal intensity. In a patient of this age, this is most consistent with mild small vessel ischemic changes. VENTRICLES: See above CRANIUM: Calvarium is intact. ORBITS: Grossly unremarkable. PARANASAL SINUSES/MASTOIDS: Partially visualized moderate mucosal thickening right maxillary sinus with suspicion of an air-fluid level. Mild mucosal thickening left maxillary sinus. Moderate mucosal thickening ethmoid sinuses. Hypoplasia of the frontal sinuses with moderate mucosal thickening of the left frontal sinus. Sphenoid sinuses appear clear. Visualized mastoid air cells are clear. VASCULAR SYSTEM: Skull base flow voids appear intact. OTHER FINDINGS: None. IMPRESSION: No mass, hemorrhage, or acute infarct identified. Age-related changes as above. Pansinus disease as above. Suspicion of air-fluid level within the right maxillary sinus. Correlate clinically for acute sinusitis.
--- NOTE | 2017-11-15 12:52 | CARD ---
APPROVED REPORT EKG Measurement Heart [id number] [place] [id number] <Conclusion> Sinus tachycardia Inferior infarct, age undetermined Abnormal ECG
[2017-11-15] MEDS ORDERED: Amoxicillin-Clav 875-125 mg Tab PO STA (15:17)
--- NOTE | 2017-11-15 15:27 | CP.PCM.PN ---
Subjective - Date & Time of Evaluation Date of Evaluation: 11/15/17 Time of Evaluation: 15:27 - Subjective Subjective: PT REQUESTING TO BE D/C HOME TODAY; GIVEN RX FOR MEDS ALREADY BY DR. WHITE. HE IS EAGER TO GET HOME TO HIS 3 CATS. STATES HIS DIZZINESS HAS RESOLVED. AMBULATING WELL WITHOUT ASSISTANCE. AAOX3, SPEECH CLEAR. HE WILL F/U WITH DR. WHITE IN THE OFFICE TOMORROW AFTERNOON. ALL REPORTS DISCUSSED WITH THE PT. MRI REVIEWED AND DISCUSSED. PO ABX TO BE STARTED BEFORE D/C AND PT WILL CONTINUE TO AT HOME FOR 7 DAYS. SEE BELOW FOR ALL D/C INSTRUCTIONS SENT WITH PT. NO FURTHER ORDERS. -FOLLOW UP WITH DR. Juan WHITE IN THE OFFICE TOMORROW AFTERNOON RECOMMENDED BY DR. WHITE. -FOLLOW UP WITH DR. GONZALES (NEUROLOGIST) IN THE OFFICE WITHIN 7-10 DAYS AFTER DISCHARGE---CALL THE OFFICE TOMORROW TO MAKE YOUR APPT. -CONTINUE ALL HOME MEDICATIONS USUAL. -MAKE SURE YOU TAKE THE NEW PRESCRIPTION MEDICATIONS EXACTLY RECOMMENDED: CRESTOR 10 MG (1 TABLET) BY MOUTH AT BEDTIME (FOR CHOLESTEROL AND HEART HEALTH) ; ASPIRIN 81 MG (BABY ASPIRIN; 1 TABLET) BY MOUTH ONCE A DAY (FOR CHOLESTEROL AND HEART HEALTH); ANTIVERT (MECLIZINE) 25 MG (1 TABLET) BY MOUTH THREE TIMES A DAY; NORVASC 10 MG (1 TABLET) BY MOUTH ONCE A DAY (FOR YOUR BLOOD PRESSURE AND HEART HEALTH). -AN ANTIBIOTIC HAS BEEN PRESCRIBED FOR YOUR SINUSITIS: AUGMENTIN 875 MG (1 TABLET) BY MOUTH TWICE A DAY (WITH BREAKFAST AND WITH DINNER) FOR 7 DAYS (START TAKING ON 11/16/17 AND LAST DOSE TO BE TAKEN ON 11/22/17). WILL HOLD OFF ON A DECONGESTANT FOR NOW IT MAY AFFECT YOUR BLOOD PRESSURE. MAKE SURE YOU COMPLETE THE ANTIBIOTIC. -IF YOU HAVE ANY FURTHER QUESTIONS OR CONCERNS, CONTACT DR. WHITE'S OFFICE. Objective - Vital Signs/Intake and Output Vital Signs (last 24 hours): Temp Pulse Resp BP Pulse Ox 98.4 F 106 H 20 138/87 97 11/15/17 08:10 11/15/17 08:10 11/15/17 08:10 11/15/17 08:10 11/15/17 08:10 Intake and Output: 11/15/17 11/15/17 06:59 18:59 Intake Total 300 Balance 300 - Medications Medications: Current Medications Amlodipine Besylate (Norvasc) 10 mg PO DAILY [facility] Last Admin: 11/15/17 10:49 Dose: 10 mg Aspirin (Aspirin Chewable) 81 mg PO DAILY [facility] Last Admin: 11/15/17 10:49 Dose: 81 mg Enoxaparin Sodium (Lovenox) 40 mg SC DAILY [facility] Last Admin: 11/15/17 10:49 Dose: 40 mg Lorazepam (Ativan) 0.5 mg PO HS [facility] Last Admin: 11/14/17 21:17 Dose: 0.5 mg Meclizine HCl (Antivert) 25 mg PO Q6 PRN PRN Reason: Dizziness Last Admin: 11/15/17 10:49 Dose: 25 mg Multivitamins (Hexavitamin) 1 tab PO DAILY [facility] Last Admin: 11/15/17 10:49 Dose: 1 tab Pantoprazole Sodium (Protonix Ec Tab) 40 mg PO DAILY [facility] Last Admin: 11/15/17 10:49 Dose: 40 mg - Labs Labs: 11/12/17 14:02 11/12/17 15:04
[2017-11-15 15:50] VITALS: BP 139/90; PULSE 94; TEMP 97.9; O2SAT 95
== END 2017-11-15 17:40 | disposition home or self-care (01) | DRG 65 ==
LOC: C.ER 12:44 → C.9E 16:04 → C.3T 17:19
PROVIDERS: ADMIT Internal Medicine Nephrology; ATTEND Internal Medicine Nephrology
DX: H81.10 Benign paroxysmal vertigo, unspecified ear (principal); K21.9 Gastro-esophageal reflux disease without esophagitis; R29.6 Repeated falls; Z23 Encounter for immunization

== ENCOUNTER 2018-09-09 11:40 | Emergency (ER) | payer OTHER ==
[2018-09-09 11:47] VITALS: BMI 28.4
[2018-09-09] MEDS ORDERED: Sodium Chloride 0.9% 1,000 ML IV SCH (12:30)
[2018-09-09 12:42] LABS: BASO # 0.1 K/uL (0.0-0.2); BASO % 0.8 % (0.0-2.0); EOS # 0.3 K/uL (0.0-0.7); EOS % 3.7 % (0.0-4.0); HEMOGLOBIN 15.9 g/dL (12.0-18.0); LYMPH # 1.5 K/uL (1.0-4.3); LYMPH % 19.6 % (20.0-40.0); MEAN CELL VOLUME 86.1 fL (80.0-94.0); MEAN CORPUSCULAR HEMOGLOBIN 29.5 pg (27.0-31.0); MEAN CORPUSCULAR HGB CONC 34.3 g/dL (33.0-37.0); MEAN PLATELET VOLUME 9.7 fL (7.2-11.7); MONO # 0.6 K/uL (0.0-0.8); MONO % 7.1 % (0.0-10.0); NEUT # 5.4 K/uL (1.8-7.0); NEUT % 68.8 % (50.0-75.0); NRBC % 0.2 % (0.0-2.0); RBC 5.4 Mil/uL (4.40-5.90); RED CELL DISTRIBUTION WIDTH 13.5 % (11.5-14.5); WHITE BLOOD COUNT 7.8 K/uL (4.8-10.8)
[2018-09-09 12:56] LABS: ALB/GLOB RATIO 1.4 (1.0-2.1); ALBUMIN 4.6 g/dL (3.5-5.0); ALT/SGPT 38 U/L (21-72); AST/SGOT 32 U/L (17-59); BLOOD UREA NITROGEN 20 mg/dL (9-20); CALCIUM 10.4 mg/dl (8.6-10.4); GFR NON-AFRICAN AMERICAN > 60
--- NOTE | 2018-09-09 13:22 | CT ---
Date of service: 09/09/2018 PROCEDURE: CT HEAD WITHOUT CONTRAST. HISTORY: r/o ICH COMPARISON: Head CT without contrast 11/13/2017. TECHNIQUE: Axial computed tomography images were obtained through the head/brain without intravenous contrast. Radiation dose: Total exam DLP = 1087.03 mGy-cm. This CT exam was performed using one or more of the following dose reduction techniques: Automated exposure control, adjustment of the mA and/or kV according to patient size, and/or use of iterative reconstruction technique. FINDINGS: HEMORRHAGE: No intracranial hemorrhage. BRAIN: Good corticomedullary differentiation is seen. Proportional, diffuse expansion of the ventriculosulcal and cisternal spaces is appreciated with white matter lucency compatible with diffuse cerebral atrophy and chronic microangiopathy. No suspicious extra-axial fluid collection is identified and the midline brain anatomy appears grossly nonfocal as imaged. There is no mass effect throughout. VENTRICLES: Unremarkable. No hydrocephalus. CALVARIUM: Unremarkable. PARANASAL SINUSES: Unremarkable as visualized. No significant inflammatory changes. MASTOID AIR CELLS: Unremarkable as visualized. No inflammatory changes. OTHER FINDINGS: None. IMPRESSION: Age-appropriate age related neuro degenerative findings are appreciate without acute intracranial changes by standard CT criteria. Follow-up CT or MRI are available if clinically warranted.
[2018-09-09 15:01] LABS: SQUAMOUS EPITHIAL < 1 /hpf (0-5); URINE BILIRUBIN NEGATIVE (NEGATIVE); URINE BLOOD NEGATIVE (NEGATIVE); URINE CLARITY Clear (Clear); URINE COLOR Yellow (YELLOW); URINE GLUCOSE (UA) NORMAL (Normal); URINE LEUKOCYTE ESTERASE NEG Leu/uL (Negative); URINE PROTEIN NEGATIVE (NEGATIVE); URINE UROBILINOGEN NORMAL mg/dL (0.2-1.0)
[2018-09-09 15:09] VITALS: BP 158/72; PULSE 97; RESP 16; TEMP 98.5; O2SAT 98
[2018-09-09 15:11] LABS: BARBITURATES, UR NEGATIVE (NEGATIVE); BENZODIAZEPINES, UR NEGATIVE (NEGATIVE); OPIATES, UR NEGATIVE (NEGATIVE); PHENCYCLIDINE, UR NEGATIVE (NEGATIVE)
--- NOTE | 2018-09-09 15:19 | C.PDOC ---
History Of Present Illness 67 y/o male pt presents to the ER with c/o dehydration and non productive cough for x4 days. Associated sx includes weakness, fever, stuffy nose, and states he has chronic sinus issues. Pt denies chest pain, SOB, abdominal pain, nausea, neck pain, vomiting and chills. Time Seen by Provider: 09/09/18 12:06 Chief Complaint (Nursing): Cough, Cold, Congestion History Per: Patient History/Exam Limitations: no limitations Onset/Duration Of Symptoms: Days (x4) Current Symptoms Are (Timing): Still Present Past Medical History Reviewed: Historical Data, Nursing Documentation, Vital Signs Vital Signs: Last Vital Signs Temp 98.5 F 09/09/18 15:08 Pulse 97 H 09/09/18 15:08 Resp 16 09/09/18 15:08 BP 158/72 H 09/09/18 15:08 Pulse Ox 98 09/09/18 15:08 - Medical History PMH: Back Problems, HTN, Chronic Pain Family History: States: Unknown Family Hx - Social History Hx Tobacco Use: No Hx Alcohol Use: No (used to long time ago) Hx Substance Use: No - Immunization History Hx Tetanus Toxoid Vaccination: No Hx Influenza Vaccination: No Hx Pneumococcal Vaccination: No Review Of Systems Except As Marked, All Systems Reviewed And Found Negative. Constitutional: Positive for: Fever. Negative for: Chills ENT: Positive for: Nose Congestion, Other (chronic sinus issue; dehydration) Cardiovascular: Negative for: Chest Pain Respiratory: Positive for: Cough (non-productive ). Negative for: Shortness of Breath Gastrointestinal: Negative for: Nausea, Vomiting, Abdominal Pain Musculoskeletal: Negative for: Neck Pain Neurological: Positive for: Weakness Physical Exam - Physical Exam Appears: Well, Non-toxic, No Acute Distress Skin: Normal Color, Warm, Dry Head: Other (mild tenderness right maxillary sinus ) Eye(s): bilateral: Normal Inspection, PERRL, EOMI Ear(s): Bilateral: Normal Nose: Normal Oral Mucosa: Moist Throat: Normal Neck: Normal ROM, Supple Chest: Symmetrical, No Deformity Cardiovascular: Rhythm Regular Respiratory: Normal Breath Sounds Gastrointestinal/Abdominal: Soft, No Tenderness Extremity: Normal ROM (x4) Neurological/Psych: Oriented x3, Normal Speech ED Course And Treatment - Laboratory Results Result Diagrams: 09/09/18 12:36 09/09/18 12:36 O2 Sat by Pulse Oximetry: 98 (RA) Pulse Ox Interpretation: Normal - CT Scan/US head Other Rad Studies (CT/US): Read By Radiologist, Radiology Report Reviewed CT/US Interpretation: Accession No. : [id number]. Patient Name / ID : TONIA YI / [id number]. Exam Date : 09/09/2018 13:05:31 ( Approved ). Study Comment : Sex / Age : M / 67Y. Creator : Ross Terrell MD. Dictator : Ross Terrell MD. Shipping Coordinator : [employer] Trimmer : Ross Terrell MD. Approver2 : Report Date : 09/09/2018 13:18:44. My Comment : . Date of service: 09/09/2018. PROCEDURE: CT HEAD WITHOUT CONTRAST. HISTORY: r/o ICH. COMPARISON: Head CT without contrast 11/13/2017. TECHNIQUE: Axial computed tomography images were obtained through the he ad/brain without intravenous contrast. Radiation dose: Total exam DLP = 1087.03 mGy-cm. This CT exam was performed using one or more of the following dose reduction techniques: Automated exposure control, adjustment of the mA and/or kV according to patient size, and/or use of iterative reconstruction technique. FINDINGS: HEMORRHAGE: No intracranial hemorrhage. BRAIN: Good corticomedullary differentiation is seen. Proportional, diffuse expansion of the ventriculosulcal and cisternal spaces is appreciated with white matter lucency compatible with diffuse cerebral atrophy and chronic microangiopathy. No suspicious extra-axial fluid collection is identified and the midline brain anatomy appears grossly nonfocal as imaged. There is no mass effect throughout. VENTRICLES: Unremarkable. No hydrocephalus. CALVARIUM: Unremarkable. PARANASAL SINUSES: Unremarkable as visualized. No significant inflammatory changes. MASTOID AIR CELLS: Unremarkable as visualized. No inflammatory salome nges. OTHER FINDINGS: None. IMPRESSION: Age-appropriate age related neuro degenerative findings are appreciate without acute intracranial changes by standard CT criteria. Follow-up CT or MRI are available if clinically warranted. Medical Decision Making Medical Decision Making: Impression: weakness, non-productive cough and chronic sinus issue Plans: -- CT head -- chem lab -- blood work -- CXR -- Iv fluids -- blood cx -- urine cx -- influenza A B stat -- UA Reassess: Patient is resting comfortably and says he feels better. Tolerating PO, and is afebrile at this time. Clinical signs and symptoms are not suggestive of sepsis, meningitis, UTI, pneumonia, intra-abdominal pathology, or cellulitis. Patient will be discharged home, and instructed to follow up with his physician in 1-2 days without fail. Patient was instructed to return for any worsening symptoms, persistent fever, neck pain, rash, abdominal pain, or vomiting. Disposition - Disposition Referrals: Ursula Galindo MD [Medical Doctor] - Disposition: HOME/ ROUTINE Disposition Time: 14:30 Condition: GOOD Additional Instructions: KD PAVON, thank you for letting us take care of you today. The emergency medical care you received today was directed at your acute symptoms. If you were prescribed any medication, please fill it and take as directed. It may take several days for your symptoms to resolve. Return to the Emergency Department if your symptoms worsen, do not improve, or if you have any other problems. Please contact your doctor or call one of the physicians/clinics you have been referred to that are listed on the Patient Visit Information form that is included in your discharge packet. Bring any paperwork you were given at discharge with you along with any medications you are taking to your follow up visit. Our treatment cannot replace ongoing medical care by a primary care provider outside of the emergency department. Thank you for allowing the [facility] team to be part of your care today. Drink fluids throughout the day to stay hydrated. You can continue taking the Mucinex as directed for the cough. Follow up with your primary care doctor in 2-3 days for re-evaluation and further management. Prescriptions: Amoxicillin/Clavulanate [Augmentin 875 MG-125 MG] 1 tab PO BID #14 tab Instructions: Sinusitis, Adult (DC), Upper Respiratory Infection (ED) Forms: [facility] labs (Beninese) - Clinical Impression Clinical Impression: Sinusitis - Scribe Statement The provider has reviewed the documentation as recorded by the Scribe Simeon Do Provider Attestation: All medical record entries made by the Nagaibe were at my direction and personally dictated by me. I have reviewed the chart and agree that the record accurately reflects my personal performance of the history, physical exam, medical decision making, and the department course for this patient. I have also personally directed, reviewed, and agree with the discharge instructions and disposition.
--- NOTE | 2018-09-09 16:08 | RAD ---
Date of service: 09/09/2018 PROCEDURE: CHEST RADIOGRAPH, 1 VIEW HISTORY: cough r/o infiltrate COMPARISON: Portable chest 11/12/2017. FINDINGS: LUNGS: No interval pulmonary disease appreciated bilaterally. PLEURA: No pneumothorax or pleural fluid seen. CARDIOVASCULAR: Stable mild cardiomegaly. No pulmonary vascular congestion. OSSEOUS STRUCTURES: No significant abnormalities. VISUALIZED UPPER ABDOMEN: Normal. OTHER FINDINGS: None. IMPRESSION: Mild cardiomegaly. No pulmonary vascular congestion. No interval pulmonary disease.
== END 2018-09-09 15:16 | disposition home or self-care (01) ==
LOC: C.ER 11:40
DX: J32.9 Chronic sinusitis, unspecified (principal)
CPT/HCPCS: 70450; 71045; 80053; 80324; 80345; 80346; 80349; 80353; 80358; 80361; 81001; 83735; 83992; 84100; 85025; 87040; 87086; 87804; 96360; 96361; 99285; J7030

== ENCOUNTER 2018-09-12 00:12 | Emergency (ER) | payer OTHER ==
[2018-09-12 00:13] VITALS: BMI 28.4
[2018-09-12] MEDS ORDERED: Albuterol-Ipratrop 3 mg / 0.5 (3 ml) UD ONE (00:27)
--- NOTE | 2018-09-12 00:38 | C.PDOC ---
History Of Present Illness Patient presents with cough, shortness of breath and wheezing. Pt was seen and treated with augmentin about 3 days ago for sinusitis. Pt states that he has phlegm in his chest that he cannot "get rid of". Speaking incomplete sentences. No f/c/n/v. no cp Time Seen by Provider: 09/12/18 00:36 Chief Complaint (Nursing): Shortness Of Breath History Per: Patient History/Exam Limitations: no limitations Onset/Duration Of Symptoms: Days Current Symptoms Are (Timing): Worse Initiating Event: Upper Respiratory Illness Exacerbating Factor(s): Coughing Current Respiratory Medications: See Home Med List Severity: Moderate Pain Scale Rating Of: 4 Associated Symptoms: denies: Fever, Chills Reports Recently: Seen In ED, Treated By A Physician Recent travel outside of the [place]: No Additional History Per: Patient Past Medical History Reviewed: Historical Data, Nursing Documentation, Vital Signs Vital Signs: Last Vital Signs Temp 97.7 F 09/12/18 00:16 Pulse 98 H 09/12/18 00:16 Resp 28 H 09/12/18 00:16 BP 227/130 H 09/12/18 00:16 Pulse Ox 90 L 09/12/18 00:16 - Medical History PMH: Back Problems, HTN, Chronic Pain Family History: States: No Known Family Hx - Social History Hx Tobacco Use: No Hx Alcohol Use: No (used to long time ago) Hx Substance Use: No - Immunization History Hx Tetanus Toxoid Vaccination: No Hx Influenza Vaccination: No Hx Pneumococcal Vaccination: No Review Of Systems Constitutional: Negative for: Fever, Chills ENT: Negative for: Throat Pain Cardiovascular: Negative for: Chest Pain Respiratory: Positive for: Cough, Shortness of Breath Gastrointestinal: Negative for: Nausea, Vomiting, Abdominal Pain Genitourinary: Negative for: Dysuria Musculoskeletal: Negative for: Back Pain Skin: Negative for: Rash Neurological: Negative for: Weakness Psych: Negative for: Anxiety Physical Exam - Physical Exam Appears: Non-toxic, No Acute Distress Skin: Warm, Dry Nose: Normal Oral Mucosa: Moist Throat: No Erythema Neck: Supple Chest: Symmetrical Cardiovascular: Rhythm Regular Respiratory: No Rales, Rhonchi, Wheezing Gastrointestinal/Abdominal: Soft, No Tenderness, No Distention Back: Normal Inspection Extremity: Normal ROM Extremity: Bilateral: Atraumatic Neurological/Psych: Oriented x3 Gait: Steady ED Course And Treatment - Laboratory Results Result Diagrams: 09/12/18 00:47 09/12/18 00:47 O2 Sat by Pulse Oximetry: 90 Pulse Ox Interpretation: Abnormal - Radiology CXR: Interpreted by Me, Viewed By Me CXR Interpretation: Yes: Cardiomegaly, Other (unchanged from 09/09/18). No: Infiltrates, Fracture, Pnemothorax Reevaluation Time: 02:04 Reassessment Condition: Improved Critical Care Time - Critical Care Note Total Time (in mins): 30 Documented critical care: time excludes all time spent performing seperately billable procedures. Disposition Counseled Patient/Family Regarding: Studies Performed, Diagnosis, Need For Followup, Rx Given - Disposition Referrals: Ursula Galindo MD [Primary Care Provider] - Disposition: HOME/ ROUTINE Disposition Time: 00:38 Condition: FAIR Additional Instructions: Please finish the antibiotics Prescriptions: Albuterol HFA [Ventolin HFA 90 mcg/actuation (8 g)] 2 puff IH [id number] #1 puff Guaifenesin [Coughtab 400] 400 mg PO TID #15 tablet Instructions: Acute Bronchitis, Adult (DC) Forms: [facility] (Faroese) - Clinical Impression Clinical Impression: Bronchitis
[2018-09-12] MEDS ORDERED: Albuterol-Ipratrop 3 mg / 0.5 (3 ml) UD IH SCH (00:45)
[2018-09-12 00:50] LABS: BASO # 0.1 K/uL (0.0-0.2); BASO % 1.1 % (0.0-2.0); EOS # 0.4 K/uL (0.0-0.7); EOS % 4.7 % (0.0-4.0); HEMOGLOBIN 16.1 g/dL (12.0-18.0); LYMPH # 2.1 K/uL (1.0-4.3); LYMPH % 27.9 % (20.0-40.0); MEAN CELL VOLUME 85.7 fL (80.0-94.0); MEAN CORPUSCULAR HEMOGLOBIN 29.7 pg (27.0-31.0); MEAN CORPUSCULAR HGB CONC 34.7 g/dL (33.0-37.0); MEAN PLATELET VOLUME 9.6 fL (7.2-11.7); MONO # 0.6 K/uL (0.0-0.8); MONO % 8.3 % (0.0-10.0); NEUT # 4.4 K/uL (1.8-7.0); NRBC % 0.1 % (0.0-2.0); RBC 5.43 Mil/uL (4.40-5.90); RED CELL DISTRIBUTION WIDTH 13.1 % (11.5-14.5); WHITE BLOOD COUNT 7.5 K/uL (4.8-10.8)
[2018-09-12 00:58] LABS: INR 1.1; PROTHROMBIN TIME 11.7 SECONDS (9.7-12.2)
[2018-09-12 01:04] LABS: ABG ALLEN TEST POS; ARTERIAL BLOOD GAS HCO3 24.7 mmol/L (21-28); ARTERIAL BLOOD GAS O2 SAT 97.5 % (95-98); ARTERIAL BLOOD GAS PCO2 37 mm/Hg (35-45); ARTERIAL BLOOD GAS PH 7.42 (7.35-7.45); ARTERIAL BLOOD GAS PO2 68 mm/Hg (80-100); ARTERIAL BLOOD GAS TCO2 25.1 mmol/L (22-28)
[2018-09-12 01:14] LABS: B-TYPE NATRIURETIC PEPTIDE 96.6 pg/mL (0-900)
[2018-09-12 01:15] LABS: ALB/GLOB RATIO 1.4 (1.0-2.1); ALBUMIN 4.9 g/dL (3.5-5.0); ALT/SGPT 42 U/L (21-72); AST/SGOT 39 U/L (17-59); BLOOD UREA NITROGEN 18 mg/dL (9-20); CALCIUM 10.7 mg/dl (8.6-10.4); GFR NON-AFRICAN AMERICAN > 60
[2018-09-12 02:20] VITALS: BP 170/91; PULSE 84; RESP 16; TEMP 97.8; O2SAT 96
--- NOTE | 2018-09-12 09:28 | RAD ---
Date of service: 09/12/2018 PROCEDURE: CHEST RADIOGRAPH, 1 VIEW HISTORY: SOB COMPARISON: 09/09/2018 FINDINGS: LUNGS: Shallow lung volumes-attributed to the crowded central pulmonary vasculature. No consolidation appreciated. PLEURA: No pneumothorax or pleural fluid seen. CARDIOVASCULAR: Cardiomegaly-similar There is absence of aortic atherosclerotic calcification on x-ray. OSSEOUS STRUCTURES: Right acromioclavicular periarticular calcification/ossification with widening-; similar-appearing VISUALIZED UPPER ABDOMEN: Normal. OTHER FINDINGS: None. IMPRESSION: No active disease. Other findings as above.
--- NOTE | 2018-09-13 11:47 | CARD ---
APPROVED REPORT Date of service: 09/12/2018 EKG Measurement Heart [id number] [place] [id number] <Conclusion> Normal sinus rhythm Normal ECG
== END 2018-09-12 02:19 | disposition home or self-care (01) ==
LOC: C.ER 00:12 → SUPCPDRO 00:12 → C.ER 02:19
DX: J40 Bronchitis, not specified as acute or chronic (principal); I10 Essential (primary) hypertension
CPT/HCPCS: 71045; 80053; 82803; 83880; 85025; 85610; 85730; 87040; 87804; 93005; 96374; 99285; J2930

== ENCOUNTER 2018-10-06 21:48 | Emergency (ER) | payer OTHER ==
[2018-10-06 21:49] VITALS: BMI 28.4
[2018-10-06] MEDS ORDERED: Albuterol-Ipratrop 3 mg / 0.5 (3 ml) UD INH STA ×2 (22:13→23:05)
--- NOTE | 2018-10-06 22:20 | C.PDOC ---
History Of Present Illness 68 year old male presents to the ER with a complaint of cough and congestion. Patient was seen on 09/12/18 for the same complaint, he was diagnosed with bronchitis and sent home on augmentin, pepcid, albuterol, and guaifenesin with q uestionable compliance. Patient notes he lives with 5 cats, does not smoke. Denies fever or chills. Time Seen by Provider: 10/06/18 22:05 Chief Complaint (Nursing): Cough, Cold, Congestion History Per: Patient History/Exam Limitations: no limitations Onset/Duration Of Symptoms: Days Current Symptoms Are (Timing): Still Present Recent travel outside of the [place]: No Past Medical History Reviewed: Historical Data, Nursing Documentation, Vital Signs Vital Signs: Last Vital Signs Temp 97.6 F 10/06/18 21:57 Pulse 97 H 10/06/18 21:57 Resp 24 10/06/18 21:57 BP 248/134 H 10/06/18 21:57 Pulse Ox 95 10/06/18 21:57 - Medical History PMH: Back Problems, HTN, Chronic Pain Family History: States: Unknown Family Hx - Social History Hx Tobacco Use: No Hx Alcohol Use: No (used to long time ago) Hx Substance Use: No - Immunization History Hx Tetanus Toxoid Vaccination: No Hx Influenza Vaccination: No Hx Pneumococcal Vaccination: No Review Of Systems Constitutional: Negative for: Fever, Chills Cardiovascular: Negative for: Chest Pain, Palpitations Respiratory: Positive for: Cough, Other (Congestion) Gastrointestinal: Negative for: Nausea, Vomiting Neurological: Negative for: Weakness, Numbness Physical Exam - Physical Exam Appears: Non-toxic, No Acute Distress Skin: Normal Color, Warm, Dry Head: Atraumatic, Normacephalic Eye(s): bilateral: Normal Inspection Nose: Normal Oral Mucosa: Moist Throat: Normal, No Erythema, No Exudate Neck: Normal, Supple Chest: Symmetrical, No Tenderness Cardiovascular: Rhythm Regular Respiratory: No Rales, Rhonchi (Scattered), No Wheezing Gastrointestinal/Abdominal: Soft, No Tenderness, Other (Obese) Extremity: No Pedal Edema Neurological/Psych: Oriented x3, Normal Speech ED Course And Treatment - Laboratory Results Result Diagrams: 10/06/18 22:47 10/06/18 22:47 Lab Interpretation: Normal (bnp/trop neg. flu swab neg) ECG: Interpreted By Me ECG Rhythm: Sinus Rhythm ECG Interpretation: Normal Rate From EC O2 Sat by Pulse Oximetry: 95 (Room air) Pulse Ox Interpretation: Normal - Radiology CXR: Interpreted by Me CXR Interpretation: Yes: No Acute Disease, Other (+ airway dz) Reevaluation Time: 23:45 Reassessment Condition: Improved Medical Decision Making Medical Decision Making: uncontrolled HTN, prob related to Thai Herbal Meds instructed to discontinue Start Vasotec PO Reactive Airway dz for > 1 month, including prior ED visit 09/12 improved with nebs/steroids Pt unwilling to stay in patient, needs to get home to feed his 5 cats Will buy a nebs machine. Disposition Doctor Will See Patient In The: Office Counseled Patient/Family Regarding: Studies Performed, Diagnosis - Disposition Disposition: HOME/ ROUTINE Disposition Time: 23:47 Condition: GOOD Forms: [facility] (Ivorian) - Clinical Impression Clinical Impression: Reactive airway disease, Uncontrolled hypertension - Scribe Statement The provider has reviewed the documentation as recorded by the Scribluis fernando Alvarez All medical record entries made by the Nagaibluis fernando were at my direction and personally dictated by me. I have reviewed the chart and agree that the record accurately reflects my personal performance of the history, physical exam, medical decision making, and the department course for this patient. I have also personally directed, reviewed, and agree with the discharge instructions and disposition.
[2018-10-06] MEDS ORDERED: Albuterol-Ipratrop 3 mg / 0.5 (3 ml) UD ONE ×3 (22:39→23:15)
[2018-10-06 22:51] LABS: BASO # 0.1 K/uL (0.0-0.2); BASO % 0.8 % (0.0-2.0); EOS # 0.5 K/uL (0.0-0.7); EOS % 5.4 % (0.0-4.0); HEMOGLOBIN 14.8 g/dL (12.0-18.0); LYMPH # 2.2 K/uL (1.0-4.3); LYMPH % 24.3 % (20.0-40.0); MEAN CELL VOLUME 85.5 fL (80.0-94.0); MEAN CORPUSCULAR HEMOGLOBIN 29.6 pg (27.0-31.0); MEAN CORPUSCULAR HGB CONC 34.6 g/dL (33.0-37.0); MEAN PLATELET VOLUME 9.5 fL (7.2-11.7); MONO # 0.9 K/uL (0.0-0.8); MONO % 10.3 % (0.0-10.0); NEUT # 5.3 K/uL (1.8-7.0); NEUT % 59.2 % (50.0-75.0); RED CELL DISTRIBUTION WIDTH 13.7 % (11.5-14.5)
[2018-10-06 23:09] LABS: ALB/GLOB RATIO 1.4 (1.0-2.1); ALBUMIN 4.5 g/dL (3.5-5.0); ALT/SGPT 45 U/L (21-72); AST/SGOT 56 U/L (17-59); BLOOD UREA NITROGEN 20 mg/dL (9-20); CALCIUM 10.1 mg/dl (8.6-10.4); GFR NON-AFRICAN AMERICAN > 60
[2018-10-06 23:18] LABS: B-TYPE NATRIURETIC PEPTIDE 77.8 pg/mL (0-900)
[2018-10-06 23:47] VITALS: O2SAT 95
[2018-10-06 23:49] VITALS: BP 147/77
[2018-10-07 00:02] VITALS: PULSE 83; RESP 20; TEMP 97.8
--- NOTE | 2018-10-07 17:33 | RAD ---
Date of service: 10/06/2018 HISTORY: SOB COMPARISON: 09/12/2018 TECHNIQUE: Chest PA and lateral FINDINGS: LUNGS: No active pulmonary disease. PLEURA: No significant pleural effusion identified. No pneumothorax apparent. CARDIOVASCULAR: No aortic atherosclerotic calcification present. Normal cardiac size. No pulmonary vascular congestion. OSSEOUS STRUCTURES: No significant abnormalities. VISUALIZED UPPER ABDOMEN: Normal. OTHER FINDINGS: None. IMPRESSION: No active disease.
--- NOTE | 2018-10-09 19:40 | CARD ---
APPROVED REPORT Date of service: 10/06/2018 EKG Measurement Heart [id number] <Conclusion> Sinus rhythm with premature supraventricular complexes Cannot rule out Anterior infarct, age undetermined Abnormal ECG
== END 2018-10-07 00:09 | disposition home or self-care (01) ==
LOC: C.ER 21:48
DX: J45.909 Unspecified asthma, uncomplicated (principal); I10 Essential (primary) hypertension
CPT/HCPCS: 71046; 80053; 83880; 84484; 85025; 87804; 93005; 94640; 96374; 99285; J2930

== ENCOUNTER 2018-11-11 02:39 | Emergency (ER) | payer OTHER ==
[2018-11-11 02:40] VITALS: BMI 28.4
--- NOTE | 2018-11-11 03:07 | C.PDOC ---
History Of Present Illness 68 y/o M p/w L knee pain x months, worsening over past 4 days. States bikes everywhere. Denies specific injury recently. Denies fever. Time Seen by Provider: 11/11/18 02:43 Chief Complaint (Nursing): Lower Extremity Problem/Injury Past Medical History Vital Signs: Last Vital Signs Temp 98.1 F 11/11/18 02:44 Pulse 92 H 11/11/18 02:44 Resp 18 11/11/18 02:44 BP 169/98 H 11/11/18 02:44 Pulse Ox 97 11/11/18 02:44 - Medical History PMH: Back Problems, HTN, Chronic Pain Family History: States: Unknown Family Hx - Social History Hx Tobacco Use: No Hx Alcohol Use: No (used to long time ago) Hx Substance Use: No - Immunization History Hx Tetanus Toxoid Vaccination: No Hx Influenza Vaccination: No Hx Pneumococcal Vaccination: No Review Of Systems Except As Marked, All Systems Reviewed And Found Negative. Constitutional: Negative for: Fever Respiratory: Negative for: Shortness of Breath Physical Exam - Physical Exam Additional Physical Exam Comments: Gen: NAD Head: NC Skin: no rash Extremities: FROM of L knee without deformity. No point tenderness. Neuro: Active ROM of knee intact. ED Course And Treatment O2 Sat by Pulse Oximetry: 97 Medical Decision Making Medical Decision Making: XR no fracture or dislocation. JORGE wrap applied. Ortho follow up advised. Disposition - Disposition Referrals: Dorian White MD [Staff Provider] - Disposition: HOME/ ROUTINE Disposition Time: 03:49 Condition: STABLE Prescriptions: Ibuprofen [Motrin] 600 mg PO Q6 #25 tab Instructions: Chronic Knee Pain Forms: [facility] (Maltese) - Clinical Impression Clinical Impression: Knee pain
[2018-11-11 04:12] VITALS: BP 142/82; PULSE 82; RESP 16; TEMP 98.4
[2018-11-11 04:20] VITALS: O2SAT 97
--- NOTE | 2018-11-11 11:41 | RAD ---
Date of service: 11/11/2018 PROCEDURE: Left Knee Radiographs. HISTORY: Pain. COMPARISON: None. FINDINGS: BONES: There is diffuse bone demineralization. There is no acute displaced fracture or bone destruction. Bone alignment is normal JOINTS: There is moderate tricompartmental degenerative osteoarthrosis with reduced joint spaces, marginal osteophytes and tibial spiking, worse in the medial compartment. JOINT EFFUSION: There is a small suprapatellar joint effusion. OTHER FINDINGS: There are atherosclerotic vascular calcifications. IMPRESSION: No acute displaced fracture or dislocation. Moderate tricompartmental degenerative osteoarthrosis, worse in the medial compartment.
== END 2018-11-11 04:31 | disposition home or self-care (01) ==
LOC: C.ER 02:39
DX: M25.562 Pain in left knee (principal); I10 Essential (primary) hypertension
CPT/HCPCS: 73562; 96372; 99284; J1885